=== PATIENT | female | born 1990 | race Caucasian/White ===

== ENCOUNTER 2018-02-12 09:55 | Inpatient (IN) ==
[2018-02-12] MEDS ORDERED: Metoclopramide 10 MG/2 ML VIAL IVP PRN (11:05)
[2018-02-12] MEDS ORDERED: Ondansetron 4 MG/2 ML VIAL IVP PRN (11:05)
[2018-02-12] MEDS ORDERED: *HR* Nalbuphine 10 MG/ML AMPUL IVP PRN (11:05)
[2018-02-12] MEDS ORDERED: Famotidine 20 MG/2 ML VIAL IVP PRN (11:05)
[2018-02-12] MEDS ORDERED: Naloxone 0.4 MG/ML INJ IVP PRN (11:05)
[2018-02-12] MEDS ORDERED: Ringers Solution, Lactated 1,000 ML IVC SCH (11:15)
[2018-02-12] MEDS ORDERED: miSOPROStol 25 MCG TABLET PO SCH (12:00)
[2018-02-12 12:10] LABS: Basophils % 0.2 %; Eosinophils # 0.1 K/mcL (0.0-0.6); Eosinophils % 0.9 %; Hematocrit 31.8 % (35.3-44.9); Hemoglobin 10.5 g/dL (11.5-15.4); Immature Granulocytes % 0.4 % (0-4); Lymphocytes # 1.5 K/mcL (0.6-4.6); Lymphocytes % 16.3 %; Mean Corpuscular Hemoglobin 27.8 pg (28.0-33.3); Mean Corpuscular Volume 84.1 fL (83.0-100.0); Mean Platelet Volume 11.5 fL (9.4-12.4); Monocytes # 0.6 K/mcL (0.0-1.3); Monocytes % 6.3 %; Neutrophils # 7.1 K/mcL (1.6-8.9); Platelet Count 270 K/mcL (140-400); Red Blood Count 3.78 M/mcL (3.82-4.97); Segmented Neutrophils % 75.9 %
[2018-02-12 15:30] LABS: Amphetamine Screen,Urine Negative ng/mL (Cutoff=1000); Barbiturate Screen,Urine Negative ng/mL (Cutoff=200); Benzodiazepines Screen,Urine Negative ng/mL (Cutoff=200); Cannabinoid Screen,Urine Negative ng/mL (Cutoff = 50); Cocaine Screen,Urine Negative ng/mL (Cutoff= 300); Opiate Screen,Urine Negative ng/mL (Cutoff=300); Phencyclidine Screen,Urine Negative ng/mL (Cutoff=25)
--- NOTE | 2018-02-12 16:43 | OB Labor Progress Note ---
Date of Encounter: 02/12/18 Time of Encounter: 16:42 Labor Progress Note - Subjective Subjective: Pt with mild uc's - Cervix Cervix: 3/80/-2 - Heart Tones Heart Tones: RNST - Interventions Interventions: AROM clear. - Plan Plan: Expect
[2018-02-12] MEDS ORDERED: Oxytocin 20 units/ LR 1000 mL 20 UNIT/1,000 ML BAG IVC SCH (21:00)
--- NOTE | 2018-02-12 21:20 | OB/GYN History & Physical ---
Date of Encounter: 02/12/18 Time of Encounter: 21:18 Assessment and Plan (1) 40 weeks gestation of Current visit: Yes Status: Acute Pt with h/o cervical incompetence and is s/p cerclage removal. She presents now for induction of labor. Plan Cytotec, expect . History of Present Illness Chief complaint: Here for induction of labor HPI: Ms. Pike is a 27 year old female female presents at 40w3d for induction of labor. Pt has h/o prior cervical incompetence with early loss and had cerclage during this removed at 36 weeks. On arrival pt report occ uc's, no vb or lof. Past Med Surg Social Fam HX - Past Medical History Source: patient, old records reviewed Medical history: no medical history Psychiatric history: no psych history - Social History Smoking Status: Never smoker Smokeless Tobacco Status: No Alcohol use: none Drug use: none - Family History Father Age: 50 Family Member Ethnicity: Non- Twin of Family Member: Yes, Identical Living Status: Still Living Hx Family Cardiac Disorders: Yes (HTN, high cholesterol) Hx Family Respiratory Disorders: No Hx Family Cancer: No Hx Family GI Disorders: No Hx Family Genitourinary Disorders: No Hx Family Endocrine Disorder: No Hx Family Musculoskeletal Disorders: No Hx Family Neuromuscular Disorders: No Hx Family Neurologic Disorders: No Hx Family HEENT Disorders: No Hx Family Autoimmune Disorders: No Hx Family Reproductive Disorders: No Hx Family Psychosocial Disorders: No Hx Family Medical Disorders: No Obstetrical History - Pregnancies : 2 : 1 Medications and Allergies Docusate [Colace] 100 mg PO DAILY 02/12/18 [History] Ferrous Sulfate 325 mg PO BIDWM 02/12/18 [History] Vit #108/Iron/FA [ One Tablet] 1 each PO DAILY 02/12/18 [ History] 3 Allergy/AdvReac Type Severity Reaction Status Date / Time No Known Allergies Allergy Verified 12/21/16 15:59 Exam - Constitutional Constitutional: well developed, well nourished - HEENT HEENT: EOMI, PERRL - Neck Neck exam: full ROM - Lungs Respiratory exam: CTAB - Cardiovascular Cardiovascular exam: RRR - Abdomen Abdomen: Present: gravid - Extremities Extremities exam: full ROM Deep Tendon Reflex Grade: 2+ Normal - Cervix Dilation: 3 Effacement: 70 Station: -2 Results Result Diagrams: 02/12/18 10:30 Abnormal lab results RBC 3.78 M/mcL (3.82-4.97) L 02/12/18 10:30 Hgb 10.5 g/dL (11.5-15.4) L 02/12/18 10:30 Hct 31.8 % (35.3-44.9) L 02/12/18 10:30 MCH 27.8 pg (28.0-33.3) L 02/12/18 10:30 All other labs normal. - VTE Reasons for not Prescribing Prophylaxis: Treatment not Indicated - Low risk for VTE
--- NOTE | 2018-02-12 21:26 | OB Labor Progress Note ---
Date of Encounter: 02/12/18 Time of Encounter: 21:24 Labor Progress Note - Subjective Subjective: Uc's getting stronger. - Cervix Cervix: 4/80/-2 - Heart Tones Heart Tones: RNST - Interventions Interventions: IUPC placed - Plan Plan: Expect . Pt is on pitocin will adjust as needed.
[2018-02-12] MEDS ORDERED: Epidural Premix (fent/bupiv) 110 ML EP ONE (22:11)
[2018-02-12] MEDS ORDERED: Epidural Premix (fent/bupiv) 110 ML EP SCH (23:45)
[2018-02-12] MEDS ORDERED: EPHEDrine 50 MG/ML VIAL ONE (23:59)
--- NOTE | 2018-02-13 | Anesthesia Evaluation PreOp ---
Date of Encounter: 02/12/18 Time of Encounter: 22:30 - Past History Planned Operation: oxana Cardiac History: Denies any Significant Hx Pulmonary History: Denies Any Significant HX MEAT CARRIER History: Denies Any Significant HX Other Medical History: Denies Any Significant HX Anesthesia History: No Prior Anesthetic Complications : Yes Test: Positive Alcohol Use: none Drug use: none Medications and Allergies Docusate [Colace] 100 mg PO DAILY 02/12/18 [History] Ferrous Sulfate 325 mg PO BIDWM 02/12/18 [History] Vit #108/Iron/FA [ One Tablet] 1 each PO DAILY 02/12/18 [ History] 3 Allergy/AdvReac Type Severity Reaction Status Date / Time No Known Allergies Allergy Verified 12/21/16 15:59 - Meds/Allergy Pre-op Review Medications Reviewed: Yes Allergies Reviewed: Yes Beta Blockers on Current Med List: No Anesthesia Results - Labs 02/12/18 10:30 Anesthesia Exam - HEENT Pupil (Motor): Pupils equal Mallampati: II Teeth: Normal Oral Opening: Greater than 3 - MEAT CARRIER LOC: Oriented MEAT CARRIER Motor: Normal RUE, Normal LUE, Normal RLE, Normal LLE, Normal Face MEAT CARRIER Sensory: Normal: RUE, LUE, RLE, LLE, Face - Cardiac Rhythm: Regular Murmur: None JVD: No Carotid Bruit: No - Pulmonary Breath Sounds: bilateral Clear Respiratory Effort: Symmetrical
--- NOTE | 2018-02-13 00:02 | Anesthesia Procedures ---
Date of Encounter: 02/13/18 Time of Encounter: 22:30 Procedures: Anesthesia - Epidural/Spinal Patient ID/Chart reviewed: Yes Patient examined: Yes OB Eval: Gestational age: 40.3 OB Eval: : 2 OB Eval: Hx Para: 0 OB Eval: Dilated at (cm): 4 OB Eval: Contractions: Non-stressed pattern Consent Obtained: Yes Supplemental Oxygen: None/Room Air Site Prep: Aseptic Technique Patient position: upright Amount of Local Anesthetic used: 3 Touhy Needle Gauge: 18 Touhy Needle Depth (cm): 8 Catheter Depth at Skin (cm): 9 Test Dose (1.5% Lido + Epi): Volume given (mls): 3 Test Dose Result: Negative Infusion Rate (mls/hr): [address]: Tegaderm, Tape Interspace Used: L4-L5 Loss of Resistance (LYRIC): Yes Blood: No CSF: No Paresthesia: No Vitals + FHT's: stable throughout see nursing notes
[2018-02-13] MEDS ORDERED: Epidural Premix (fent/bupiv) 110 ML EP ONE (03:53)
--- NOTE | 2018-02-13 05:57 | OB Labor Progress Note ---
Date of Encounter: 02/13/18 Time of Encounter: 05:54 Labor Progress Note - Subjective Subjective: Pt comfortable with epidural - Vital Signs Vital Signs: BP 107/57 - Cervix Cervix: 7-8/90/-1 - Heart Tones Heart Tones: 130's with excellent BTBV, late decels noted. - [place]: UC's q 3-4 min 70 mmhg - Interventions Interventions: Pitocin cut back then turned off, bolus given and pt repositioned. - Plan Plan: Pt now with recurrent late decels. Still great BTBV noted. Agressive efforts underway to improve heart rate tracing. If late decels persist will need to proceed with .
--- NOTE | 2018-02-13 06:40 | OB Labor Progress Note ---
Date of Encounter: 02/13/18 Time of Encounter: 06:37 Labor Progress Note - Subjective Subjective: Pt comfortable with uc's, tearful worried about prospect of . She very much wants chance at attempted vaginal delivery. - Heart Tones Heart Tones: Excellent BTBV, no decels with last 3 uc's. - Interventions Interventions: PIt off, oxygen on, iv bolus complete, pt on left side - Plan Plan: Aggressive inutero recusitative efforts appear to be working and no longer with late decels, however uc's now very spaced out. Pt very much wants attempt at vaginal delivery and does not want at this time. Will cont. observation, may be able to increase pitocin again in a alittle bit.
[2018-02-13] MEDS ORDERED: CeFAZolin Syringe 2,000MG/20 ML SYR IVPB ONE (07:20)
--- NOTE | 2018-02-13 07:28 | OB Labor Progress Note ---
Date of Encounter: 02/13/18 Time of Encounter: 07:26 Labor Progress Note - Plan Plan: heart tracing now with marked variability and wandering baseline from 90 to 180. Cvx not changed. D/w pt options and my concern over potential for compromise. Will proceed with primary LTCS.
[2018-02-13] MEDS ORDERED: Lidocaine -MPF 2% 5 ML VIAL ONE (07:29)
[2018-02-13] MEDS ORDERED: *HR* Phenylephrine 10 MG/ML VIAL ONE (07:30)
[2018-02-13] MEDS ORDERED: CeFAZolin Syr 2,000MG/20 ML 2,000 MG/20 ML SYRINGE IVPB ONE (07:30)
[2018-02-13] MEDS ORDERED: CeFAZolin Premix DUPLEX 2,000 MG/50 ML BAG IVPB ONE ×2 (07:45)
[2018-02-13] MEDS ORDERED: Ondansetron 4 MG/2 ML VIAL ONE (07:55)
[2018-02-13] MEDS ORDERED: Ringers Solution, Lactated 1,000 ML ONE (07:55)
[2018-02-13] MEDS ORDERED: Morphine Sulfate/PF 5mg/10mL Vial ONE (07:59)
[2018-02-13] MEDS ORDERED: *HR* Promethazine 25 MG/ML VIAL IVP PRN (08:23)
[2018-02-13] MEDS ORDERED: *HR* OxyCODONE Immed Rel 5 MG TABLET PO PRN (08:23)
--- NOTE | 2018-02-13 08:43 | OB/GYN Procedure Note ---
Section - Date of procedure: 02/13/18 Preop diagnosis: other (History of incompetent cervix, nonreassuring well- being) Procedure: section, primary low transverse Surgeon: Ayden Truong Estimated blood loss (cc): 700 Was there an dietary assistant present: No Anesthesia Type: Epidural section complications: none Disposition: PACU Specimens: Placenta - (s) Infant A Infant Delivery Date: 02/13/18 Delivery Time: 08:03 Presentation: vertex Position: LOVE Route of delivery: forceps ( section) Viability: Viable Pounds: 9 Ounces: 0 at 1 minute: 9 at 5 minutes: 9 Shoulder Dystocia: not encountered Specimens collected: cord blood Placenta: spontaneous Cord: 3 umbilical vessels - Narrative Narrative: Patient's 19-year-old female history of present, cervix status post cerclage removal at 36 weeks no presented at 40 weeks and 3 days for induction of labor she initially reached 8 cm dilation however begin having recurrent late decelerations. Resuscitative measures were taken using repositioning IV fluid bolus turned off Pitocin and giving oxygen initially responded with resolution of the late decelerations however then begin having very marked variability and again late decelerations therefore decision was made to proceed with primary section for nonreassuring well-being. She was informed of operative risks and signed appropriate consent. Description of procedure: Patient was taken operating room where epidural was dosed. Was prepped and draped in usual sterile fashion and Wood catheter was left in continuing to drain clear fluid. Once adequate anesthesia was ensured scalpel was used to make a Pfannenstiel skin incision which sharp taken down the rectus muscle fascia was incised midline fascial incision was extended bilaterally. Peritoneum was entered bluntly bladder blade was placed and bladder flap was developed and lower uterine segment infant was delivered vertex presentation significant With molding was noted. There was a nuchal cord 1 that was easily reduced. Cord was clamped and cut and infant was taken nurse personnel were weight is 79 pounds Apgars of 9 at 1 minute and 9 at 5 minutes. The delivered manually without difficulty uterine cavity was massaged free of all residual tissue. Uterus closed the Vicryl running lock stitch second imbricating layer was placed with the first obtain hemostasis. Again irrigation was performed hemostasis was ensured fascia was closed 0 Vicryl in a running manner. Once the fascia was closed again irrigation was performed hemostasis was ensured and. Skin edges reapproximated with 4-0 Vicryl. All sponge counts counts are correct patient was taken recovery in good condition.
[2018-02-13] MEDS ORDERED: Naloxone 0.4 MG/ML INJ IVP PRN (11:15)
[2018-02-13] MEDS ORDERED: Metoclopramide 10 MG/2 ML VIAL IVP PRN (11:15)
[2018-02-13] MEDS ORDERED: Ondansetron 4 MG/2 ML VIAL IVP PRN (11:15)
[2018-02-13] MEDS ORDERED: Oxytocin 20 units/ LR 1000 mL 20 UNIT/1,000 ML BAG IVC SCH (11:15)
[2018-02-13] MEDS ORDERED: Sennosides 8.6 MG TABLET PO PRN (11:15)
[2018-02-13] MEDS ORDERED: Rho Immune Globulin 1,500 UNIT SYRINGE IM ONE (11:15)
[2018-02-13] MEDS: *HR* OxyCODONE/APAP 5/325 TABLET PO PRN (20:21)
[2018-02-13] MEDS: Ibuprofen 600 MG TABLET PO PRN (20:21)
[2018-02-14] MEDS: Ibuprofen 600 MG TABLET PO PRN ×3 (03:34→18:10)
[2018-02-14] MEDS: *HR* OxyCODONE/APAP 5/325 TABLET PO PRN ×3 (03:34→18:10)
[2018-02-14 06:04] LABS: Basophils % 0.1 %; Eosinophils # 0.1 K/mcL (0.0-0.6); Eosinophils % 0.7 %; Hematocrit 27.3 % (35.3-44.9); Immature Granulocytes % 0.4 % (0-4); Lymphocytes # 1.3 K/mcL (0.6-4.6); Lymphocytes % 8.6 %; Mean Corpuscular HGB Conc 32.6 g/dL (31.6-35.5); Mean Corpuscular Hemoglobin 27.2 pg (28.0-33.3); Mean Corpuscular Volume 83.5 fL (83.0-100.0); Mean Platelet Volume 10.7 fL (9.4-12.4); Monocytes # 0.8 K/mcL (0.0-1.3); Monocytes % 5.5 %; Neutrophils # 12.8 K/mcL (1.6-8.9); Platelet Count 254 K/mcL (140-400); Red Blood Count 3.27 M/mcL (3.82-4.97); Red Cell Distribution Width 14.3 % (11.5-14.5); Segmented Neutrophils % 84.7 %
[2018-02-14 06:06] LABS: Hemoglobin 8.9 g/dL (11.5-15.4)
[2018-02-14] MEDS: Prenatal Vit/FA 1 EACH TABLET PO SCH (08:16)
--- NOTE | 2018-02-14 09:20 | OB/GYN Progress Note ---
Date of Encounter: 02/14/18 Time of Encounter: 09:18 - Assessment and Plan (1) S/P section Current Visit: Yes Status: Acute Stable POD #1 Continue current management Anticipate DC tomorrow. (2) anemia Current Visit: Yes Status: Acute will increase iron to BID Subjective - Subjective Interval history: Pt states feels well. Pain well managed on po pain medication. Patient reports: appetite normal, voiding normally, pain well controlled, ambulating normally [place]: doing well Objective - Vital Signs Latest vital signs: Vital Signs Temp Pulse Pulse Resp BP Pulse Ox 02/14/18 07:58 97.9 F 98 16 106/70 97 02/14/18 03:51 97.8 F 105 18 107/56 98 02/13/18 23:59 97.7 F 102 20 109/70 100 02/13/18 20:00 98.7 F 126 16 109/59 98 02/13/18 17:00 106 16 106/64 98 02/13/18 14:32 98.2 F 118 16 112/62 02/13/18 13:10 16 02/13/18 13:04 98.8 F 137 12 118/67 96 02/13/18 12:00 98.1 F 115 16 110/61 02/13/18 11:35 98.4 F 120 12 112/61 98 02/13/18 11:27 110 16 02/13/18 11:00 98.8 F 121 16 116/65 96 Intake and Output 02/13/18 02/14/18 02/14/18 23:59 07:59 15:59 Intake Total 600 / 600 Output Total 1800 / 1800 1100 / 1100 Balance -1200 / -1200 -1100 / -1100 Intake: Oral 600 / 600 Output: Urine 300 / 300 Catheter 1500 / 1500 1100 / 1100 2-way Urethral 1100 / 1100 Other: Weight 123.967 kg Patient Weight 02/14/18 23:59 Weight 123.967 kg - Exam Lungs: bilateral: normal Chest: Normal S1, Normal S2 Extremities: Present: normal Abdomen: Present: normal appearance, soft Uterus: Present: normal (at u) - Labs Labs: Laboratory Results - last 24 hr 02/14/18 05:51 WBC 15.1 H D RBC 3.27 L Hgb 8.9 L D Hct 27.3 L MCV 83.5 MCH 27.2 L MCHC 32.6 RDW 14.3 Plt Count 254 MPV 10.7 Immature Gran % 0.4 Seg Neutrophils % 84.7 Lymphocytes % 8.6 Monocytes % 5.5 Eosinophils % 0.7 Basophils % 0.1 Neutrophils # 12.8 H Lymphocytes # 1.3 Monocytes # 0.8 Eosinophils # 0.1 Basophils # 0.0
[2018-02-14] MEDS: Simethicone 80 MG TAB.CHEW PO PRN (19:50)
[2018-02-15] MEDS: *HR* OxyCODONE/APAP 5/325 TABLET PO PRN (04:21)
[2018-02-15] MEDS: Simethicone 80 MG TAB.CHEW PO PRN (04:21)
[2018-02-15 08:23] VITALS: BP 118/79
[2018-02-15] MEDS: Prenatal Vit/FA 1 EACH TABLET PO SCH (08:38)
--- NOTE | 2018-02-15 09:11 | Discharge Summary ---
Date of Encounter: 02/15/18 Time of Encounter: 09:34 - Discharge Diagnosis (1) S/P section Priority: Primary Status: Acute Comments: Doing well S/P Day 2. Pain well controlled with po meds. Ambulating and voiding well without difficulty. Passing gas, no BM since delivery. Tolerating regular diet. Lochia light and without clots. Infant in crib in room , states baby bottlefeeding well. Desires to go home today. - Discharge Medications Prescriptions: Ibuprofen [Motrin] 600 mg PO Q6HR PRN #30 tablet PRN Reason: Cramping OxyCODONE/APAP 5/325 [Percocet 5/325 MG] 1 each PO Q6HR PRN 7 Days #28 tablet PRN Reason: Moderate pain 4-6 Docusate [Colace] 100 mg PO BID #20 capsule Ferrous Sulfate 325 mg PO BIDWM #120 tablet Home Medications: Vit #108/Iron/FA [ One Tablet] 1 each PO DAILY 02/12/18 [ History] Docusate [Colace] 100 mg PO BID #20 capsule 02/15/18 [Rx] Ferrous Sulfate 325 mg PO BIDWM #120 tablet 02/15/18 [Rx] Ibuprofen [Motrin] 600 mg PO Q6HR PRN #30 tablet 02/15/18 [Rx] OxyCODONE/APAP 5/325 [Percocet 5/325 MG] 1 each PO Q6HR PRN 7 Days #28 tablet [Rx] Simethicone [Gas-X] 80 mg PO TID PRN tab.chew 02/15/18 [Rx] Allergies/Adverse Reactions: 3 Allergy/AdvReac Type Severity Reaction Status Date / Time No Known Allergies Allergy Verified 12/21/16 15:59 Data Procedures and tests throughout hospitalization: Laboratory Tests 02/12/18 02/12/18 02/14/18 10:30 10:30 05:51 WBC 9.3 15.1 H D RBC 3.78 L 3.27 L Hgb 10.5 L 8.9 L D Hct 31.8 L 27.3 L MCV 84.1 83.5 MCH 27.8 L 27.2 L MCHC 33.0 32.6 RDW 14.0 14.3 Plt Count 270 254 MPV 11.5 10.7 Immature Gran % 0.4 0.4 Seg Neutrophils % 75.9 84.7 Lymphocytes % 16.3 8.6 Monocytes % 6.3 5.5 Eosinophils % 0.9 0.7 Basophils % 0.2 0.1 Neutrophils # 7.1 12.8 H Lymphocytes # 1.5 1.3 Monocytes # 0.6 0.8 Eosinophils # 0.1 0.1 Basophils # 0.0 0.0 Urine Opiates Screen Negative Ur Barbiturates Screen Negative Ur Phencyclidine Scrn Negative Ur Amphetamines Screen Negative U Benzodiazepines Scrn Negative Urine Cocaine Screen Negative U Marijuana (THC) Screen Negative Date of admission: 02/12/18 09:55 Primary care physician: PCP NONE Discharging clinician: Deyanira Sanchez Anticipated date of discharge: 02/15/18 - Patient Status Disposition: Home, Self-Care Condition: Good Functional capacity at discharge: independent ambulation Overall status at discharge: patient is progressing back to baseline - Discharge Instructions Follow Up With: NONE,PCP [Primary Care Provider] - Ayden Truong MD [Partnered Physician] - - Diet and Activity Activity: resume usual activities as tolerated Diet: advance to your usual diet Hospital Course Reason for admission: section Delivery: section Other procedures: none complications: none Discharge diagnosis: IUP at term delivered [place] baby: male Hospital course: Uncomplicated Time spent discussing smoking cessation with patient: 3 to 10 minutes Time Attestation: Total time spent providing and/or coordinating discharge services: Time Spent: Less than 30 minutes - VTE Reasons for not Prescribing Prophylaxis: Treatment not Indicated - Low risk for VTE Documentation of Mechanical Device: Intermittent pneumatic compression device Exam - Constitutional Vitals: Temp Pulse Resp BP Pulse Ox 98.1 F 109 20 118/79 98 02/15/18 08:22 02/15/18 08:22 02/15/18 08:22 02/15/18 08:22 02/15/18 08:22 General appearance IM: cooperative, A&O X 3, pleasant, no acute distress, answers questions appropriately - Respiratory Respiratory exam: Present: CTAB - Cardiovascular Cardiovascular exam IM: Present: RRR - GI/Abdominal GI/Abdominal exam IM: normal bowel sounds Incision: normal, intact - Rectal Rectal exam: deferred - Uterine Tone: Firm Uterus Position: At Umbilicus, Midline - Extremities Exam Extremities exam IM: Present: full ROM, normal inspection, radial pulses palpable and symmetrical - Neurological Exam Neurological exam: alert, normal gait, oriented X3
== END 2018-02-15 13:46 | disposition home or self-care (01) | DRG 766 ==
LOC: 1NENULAB 09:55 → 1NENUOBS 02-13 10:56
PROVIDERS: ADMIT Obstetrics & Gynecology; ATTEND Obstetrics & Gynecology

== ENCOUNTER 2019-05-20 10:21 | Observation (INO) ==
[2019-05-20] MEDS ORDERED: CeFAZolin Syr 2,000MG/20 ML 2,000 MG/20 ML SYRINGE IVPB ONE (10:40)
[2019-05-20] MEDS ORDERED: Ringers Solution, Lactated 1,000 ML IVC SCH (10:45)
[2019-05-20] MEDS ORDERED: *HR* Promethazine 25 MG/ML VIAL IVP PRN (11:00)
[2019-05-20] MEDS ORDERED: Acetaminophen IV 1,000 MG/100 ML INFUS..BTL IVPB ONE (11:00)
[2019-05-20] MEDS ORDERED: *HR* OxyCODONE Immed Rel 5 MG TABLET PO PRN ×2 (11:00→18:28)
[2019-05-20] MEDS ORDERED: *HR* FentaNYL (PF) 100 MCG/2 ML VIAL ONE (11:02)
[2019-05-20] MEDS ORDERED: *HR* Propofol 200 MG/20 ML VIAL IVP ONE (11:02)
[2019-05-20] MEDS ORDERED: Ondansetron 4 MG/2 ML VIAL ONE (11:03)
[2019-05-20] MEDS ORDERED: *HR* Rocuronium Bromide 50 MG/5 ML VIAL ONE (11:03)
[2019-05-20] MEDS ORDERED: Dexamethasone 4 MG/ML VIAL ONE (11:03)
[2019-05-20] MEDS ORDERED: Lidocaine -MPF 2% 2 ML VIAL ONE (11:03)
[2019-05-20] MEDS ORDERED: *HR* Succinylcholine 200 MG/10 ML VIAL IVP ONE (11:03)
[2019-05-20] MEDS ORDERED: *HR* Midazolam HCl 2 MG/2 ML VIAL ONE (11:06)
[2019-05-20] MEDS ORDERED: *HR* Remifentanil 2 MG VIAL IVP ONE (11:12)
[2019-05-20] MEDS ORDERED: Lidocaine/EPI 1:100k 1% 20 ML VIAL ONE (12:31)
[2019-05-20] MEDS ORDERED: Hydrocortisone Sodium Succ 100 MG/2 ML VIAL ONE (12:53)
[2019-05-20] MEDS ORDERED: *HR* Metoprolol 5 MG/5 ML VIAL IVP ONE (12:54)
[2019-05-20] MEDS ORDERED: *HR* PHENYLEPHRINE 1,000 MCG/10 ML SYRINGE IVP ONE (13:15)
[2019-05-20] MEDS ORDERED: *HR* Remifentanil 1 MG VIAL IVP ONE ×2 (15:03→16:34)
[2019-05-20] MEDS ORDERED: Esmolol 100 MG/10 ML VIAL IVP ONE (17:05)
[2019-05-20] MEDS ORDERED: *HR* HYDROmorphone (PF) 1 MG/ML SYRINGE ONE (17:15)
[2019-05-20] MEDS ORDERED: Ondansetron 4 MG/2 ML VIAL IVP PRN (18:28)
[2019-05-20] MEDS ORDERED: Acetaminophen 325 MG TABLET PO PRN (18:28)
[2019-05-20] MEDS ORDERED: LEVONORGESTREL IY SCH (18:28)
[2019-05-20] MEDS ORDERED: *HR* HYDROcodone/Acet 5/325 mg TABLET PO PRN (18:28)
[2019-05-20] MEDS ORDERED: Naloxone 0.4 MG/ML INJ IVP PRN (18:28)
[2019-05-21] MEDS ORDERED: Calcium Gluconate 1gm/50mL 1 GM/50 ML BAG IVPB ONE (04:24)
[2019-05-21] MEDS: Cholecalciferol (D-3) 1,000 UNIT (25MCG) TABLET PO SCH (08:08)
[2019-05-22 07:22] VITALS: BP 141/82
[2019-05-22] MEDS: Cholecalciferol (D-3) 1,000 UNIT (25MCG) TABLET PO SCH (08:08)
== END 2019-05-22 11:11 | disposition home or self-care (01) ==
LOC: 3BNU 10:21 → SAMDAY 10:21 → 3BNU 17:12
PROVIDERS: ADMIT Otolaryngology Facial Plastic Surgery; ATTEND Otolaryngology Facial Plastic Surgery
PROC: [UNRECOGNIZED PROCEDURE] (2019-05-20 12:25)

== ENCOUNTER 2019-05-23 21:00 | Observation (INO) ==
[2019-05-23 22:35] LABS: Basophils % 0.4 %; Eosinophils # 0.2 K/mcL (0.0-0.6); Eosinophils % 2.1 %; Hematocrit 32.1 % (35.3-44.9); Hemoglobin 10.5 g/dL (11.5-15.4); Immature Granulocytes % 0.2 % (0-4); Lymphocytes # 3.4 K/mcL (0.6-4.6); Mean Corpuscular HGB Conc 32.7 g/dL (31.6-35.5); Mean Corpuscular Hemoglobin 26.6 pg (28.0-33.3); Mean Corpuscular Volume 81.5 fL (83.0-100.0); Mean Platelet Volume 10.1 fL (9.4-12.4); Monocytes # 0.6 K/mcL (0.0-1.3); Monocytes % 6.5 %; Neutrophils # 4.7 K/mcL (1.6-8.9); Platelet Count 271 K/mcL (140-400); Red Blood Count 3.94 M/mcL (3.82-4.97); Red Cell Distribution Width 12.3 % (11.5-14.5); Segmented Neutrophils % 52.8 %
[2019-05-23 22:40] LABS: VBG Ionized Calcium 0.87 mmol/L (1.15-1.35)
[2019-05-23 22:54] LABS: BUN/Creatinine Ratio 28 (6-26); Blood Urea Nitrogen 15 mg/dL (6-20); Calcium 7.2 mg/dL (8.6-10.3); Carbon Dioxide 26 mEq/L (23-29); Chloride 104 mEq/L (98-107); Glucose 90 mg/dL (70-105); Osmolality,Calculated 286 (280-300); Potassium 3.8 mEq/L (3.5-5.1); Sodium 138 mEq/L (136-145); eGFR For African Americans > 60 (> 60); eGFR For Non-African Americans > 60 (> 60)
[2019-05-23 23:29] LABS: Albumin 3.8 g/dL (3.5-5.7)
[2019-05-23] MEDS ORDERED: Calcium Gluconate 1gm/50mL 1 GM/50 ML BAG IVPB ONE (23:30)
[2019-05-24] MEDS ORDERED: Naloxone 0.4 MG/ML INJ IVP PRN (06:27)
[2019-05-24 07:08] LABS: VBG Ionized Calcium 0.76 mmol/L (1.15-1.35)
[2019-05-24 07:15] LABS: Basophils % 0.4 %; Eosinophils # 0.2 K/mcL (0.0-0.6); Eosinophils % 2.8 %; Hematocrit 30.4 % (35.3-44.9); Immature Granulocytes % 0.3 % (0-4); Lymphocytes # 2.7 K/mcL (0.6-4.6); Lymphocytes % 36.4 %; Mean Corpuscular HGB Conc 32.9 g/dL (31.6-35.5); Mean Corpuscular Hemoglobin 26.5 pg (28.0-33.3); Mean Corpuscular Volume 80.4 fL (83.0-100.0); Mean Platelet Volume 10.8 fL (9.4-12.4); Monocytes # 0.5 K/mcL (0.0-1.3); Monocytes % 6.2 %; Platelet Count 260 K/mcL (140-400); Red Blood Count 3.78 M/mcL (3.82-4.97); Red Cell Distribution Width 12.3 % (11.5-14.5); Segmented Neutrophils % 53.9 %; White Blood Count 7.4 K/mcL (4.3-11.1)
[2019-05-24 07:24] LABS: BUN/Creatinine Ratio 24 (6-26); Blood Urea Nitrogen 12 mg/dL (6-20); Calcium 6.4 mg/dL (8.6-10.3); Carbon Dioxide 27 mEq/L (23-29); Chloride 102 mEq/L (98-107); Glucose 92 mg/dL (70-105); Osmolality,Calculated 283 (280-300); Potassium 3.7 mEq/L (3.5-5.1); Sodium 137 mEq/L (136-145); eGFR For African Americans > 60 (> 60); eGFR For Non-African Americans > 60 (> 60)
[2019-05-24 07:30] LABS: Albumin 3.6 g/dL (3.5-5.7); Phosphorous 5.9 mg/dL (2.7-4.5)
[2019-05-24] MEDS ORDERED: Calcium Gluconate 2,000 MG in 0.9 % Sodium Chloride 100 ML IVPB ONE ×2 (07:47→18:30)
[2019-05-24] MEDS ORDERED: Acetaminophen 325 MG TABLET PO PRN (08:16)
[2019-05-24] MEDS: cephALEXin 500 MG CAPSULE PO SCH ×2 (10:29→20:10)
[2019-05-24 12:49] LABS: Calcium 7.2 mg/dL (8.6-10.3); Magnesium 1.9 mg/dL (1.6-2.6)
[2019-05-24] MEDS ORDERED: Calcium Gluconate 1gm/50mL 1 GM/50 ML BAG IVPB SCH (17:47)
[2019-05-25] MEDS ORDERED: Fluconazole 100 MG TABLET PO ONE
[2019-05-25 03:16] LABS: Basophils % 0.2 %; Eosinophils # 0.3 K/mcL (0.0-0.6); Eosinophils % 3.9 %; Hematocrit 31.1 % (35.3-44.9); Hemoglobin 10.2 g/dL (11.5-15.4); Immature Granulocytes % 0.1 % (0-4); Mean Corpuscular HGB Conc 32.8 g/dL (31.6-35.5); Mean Corpuscular Hemoglobin 27.1 pg (28.0-33.3); Mean Corpuscular Volume 82.5 fL (83.0-100.0); Mean Platelet Volume 10.8 fL (9.4-12.4); Monocytes # 0.5 K/mcL (0.0-1.3); Neutrophils # 4.3 K/mcL (1.6-8.9); Platelet Count 277 K/mcL (140-400); Red Blood Count 3.77 M/mcL (3.82-4.97); Red Cell Distribution Width 12.2 % (11.5-14.5); Segmented Neutrophils % 52.8 %; White Blood Count 8.2 K/mcL (4.3-11.1)
[2019-05-25 03:32] LABS: Albumin 3.6 g/dL (3.5-5.7); BUN/Creatinine Ratio 21 (6-26); Blood Urea Nitrogen 10 mg/dL (6-20); Calcium 7.3 mg/dL (8.6-10.3); Carbon Dioxide 24 mEq/L (23-29); Chloride 103 mEq/L (98-107); Glucose 88 mg/dL (70-105); Magnesium 1.5 mg/dL (1.6-2.6); Osmolality,Calculated 282 (280-300); Potassium 3.9 mEq/L (3.5-5.1); Sodium 137 mEq/L (136-145); eGFR For African Americans > 60 (> 60); eGFR For Non-African Americans > 60 (> 60)
[2019-05-25] MEDS ORDERED: Calcium Gluconate 1gm/50mL 1 GM/50 ML BAG IVPB ONE (07:35)
[2019-05-25] MEDS: cephALEXin 500 MG CAPSULE PO SCH (08:51)
[2019-05-25] MEDS ORDERED: Magnesium Oxide 400 MG TABLET PO SCH (09:00)
[2019-05-25] MEDS ORDERED: Calcium Gluconate 2,000 MG in 0.9 % Sodium Chloride 100 ML IVPB ONE ×3 (09:00→15:10)
[2019-05-25 15:32] VITALS: BP 132/79
[2019-05-25] MEDS ORDERED: Magnesium Oxide 400 MG TABLET PO STA (18:27)
== END 2019-05-25 18:00 | disposition home or self-care (01) ==
LOC: EMEROOARM 21:00 → 3ANU 21:00 → SUATTDRO 05-24 00:18 → 3ANU 05-24 00:54
PROVIDERS: ADMIT Family Medicine; ATTEND Internal Medicine

== ENCOUNTER 2019-06-12 15:29 | Observation (INO) ==
--- NOTE | 2019-06-12 16:04 | Emergency Department Note ---
Disposition Clinical Impression: Hypocalcemia Disposition: Admitted As Inpatient Condition: Good Time of Disposition: 18:01 Recheck wound or abnormal lab - General Chief Complaint: ED Recheck/Abnormal Lab/Rx Stated Complaint: abnormal labs, low calcium Time Seen by Provider: 06/12/19 15:40 Source: patient Limitations: no limitations Nursing Notes Reviewed: Yes Vital Signs Reviewed: Yes - History of Present Illness HPI Narrative: Patient is a 28 yo woman who had her thyroid removed 2/2 enlargement 3 weeks ag o. Her labs today had calcium 6, per patient, and she was told to come to the ED. She is having facial spasms, numbness and tingling with cramping in her hands and legs. Symptoms have been present since surgery, however, they have gotten worse the past 2 days. She said she has been hospitalized once 2 days post-op for hypocalcemia. She has 3 remaining parathyroid glands. Next followup appointments are at the end of June. Patient denies fever, AMS, CP, palpitations/irregular heartbeat, dizziness, SOB, N/V/D, abdominal pain or any other symptoms. PMH significant for hyperthyroidism s/p thyroidectomy, surgical removal of ovary 2/2 dermoid cyst. Medications include calcitriol 0.5mg bid, calcium carbonate 1g 4 times daily, Mg 400 mg BID, levothyroxine 125 mg daily. - Related Data Home Medications Medication Instructions Recorded Confirmed Buspirone HCl [Buspar] 7.5 mg PO BID PRN 05/20/19 06/12/19 Levonorgestrel [Mirena] 1 each IY AD 05/20/19 06/12/19 Calcitriol [Rocaltrol] 0.5 mcg PO BID 05/24/19 06/12/19 Calcium Carbonate [Calcium] 1,000 mg PO QID 05/24/19 06/12/19 Levothyroxine [Synthroid] 125 mcg PO QAM 05/24/19 06/12/19 Previous Rx's Medication Instructions Recorded Magnesium Oxide [Mag-Ox] 400 mg PO BID #60 tablet 05/25/19 Allergies Allergy/AdvReac Type Severity Reaction Status Date / Time No Known Allergies Allergy Verified 05/24/19 14:01 All systems ED: reviewed and negative except as stated. Neurological: Reports: paresthesias Endocrine: Reports: as per HPI Past Medical History - Past Medical History Attestation: Yes The following information was validated with the patient. Source: patient, old records reviewed, obtained from family Medical history: Reports: thyroid disease, other Surgical history: Reports: thyroidectomy, other Psychiatric history: Reports: anxiety [employer] history: Reports: other - Social History Smoking Status: Never smoker Smokeless Tobacco Status: No Alcohol use: Reports: none Drug use: Reports: none Physical Exam PE Gen: NAD, AOx3 HEENT: No lymphadenopathy, no signs of surgical site infection. Pupils equal and reactive. Cardio: Regular rate and rhythm, no murmur, no peripheral edema, no cyanosis, good perfusion to all extremities. Resp: Breath sounds equal bilaterally, no wheeze or cough GI: Abdomen soft, nontender, nondistended on palpation in all quadrants : No suprapubic distention or tenderness MSK: No lesions, normal ROM, no joint erythema or edema Neuro: +Chvostek's sign, CNI-XII intact, sensation and strength intact Psych: appropriate affect - General Limitations: no limitations General appearance: alert, in no apparent distress Course Course Narrative: Given thyroidectomy and Ca 6 drawn at noon today, will start IV calcium gluconate. Ordered CBC, BMP, Mg, PO4, TSH, T3/T4, PTH and EKG. Ca 6.5, PTH low at 8.8 w/ accompanying hyperphosphatemia. Mg WNL. TSH 0.033, free T3 2.28, both low. EKG significant for prolonged Qtc 514. Plan to admit patient given symptomatic hypocalcemia probable 2/2 hypoparathyroidism with prolonged Qtc. Hospitalist and patient agreed with plan. Vital Signs Temperature 97.9 F 06/12/19 15:35 Pulse Rate 80 06/12/19 15:35 Respiratory Rate 06/12/19 15:35 Blood Pressure 137/83 06/12/19 15:35 O2 Sat by Pulse Oximetry 99 06/12/19 15:35 Temperature 97.9 F 06/12/19 15:35 Pulse Rate 74 06/12/19 16:52 Respiratory Rate 06/12/19 15:35 Blood Pressure 135/93 06/12/19 16:52 O2 Sat by Pulse Oximetry 100 06/12/19 16:52 Oxygen Delivery Oxygen Delivery Room Air Recheck wound or abnormal lab - MDM Narrative Medical decision making narrative: See course. - Medical Records Medical records reviewed: Yes I reviewed the patient's medical records. - Lab Data Lab results reviewed: Yes I reviewed the patient's lab results. Result diagrams: 06/12/19 16:04 06/12/19 16:04 Lab Results 06/12/19 06/12/19 06/12/19 Range/Units 16:04 16:04 16:04 WBC 7.9 (4.3-11.1) K/mcL RBC 4.15 (3.82-4.97) M/mcL Hgb 11.2 L (11.5-15.4) g/dL Hct 34.7 L (35.3-44.9) % MCV 83.6 (83.0-100.0) fL MCH 27.0 L (28.0-33.3) pg MCHC 32.3 (31.6-35.5) g/dL RDW 13.2 (11.5-14.5) % Plt Count 328 (140-400) K/mcL MPV 10.6 (9.4-12.4) fL Immature Gran % 0.3 (0-4) % Seg Neutrophils % 54.7 % Lymphocytes % 36.5 % Monocytes % 4.7 % Eosinophils % 2.9 % Basophils % 0.9 % Neutrophils # 4.3 (1.6-8.9) K/mcL Lymphocytes # 2.9 (0.6-4.6) K/mcL Monocytes # 0.4 (0.0-1.3) K/mcL Eosinophils # 0.2 (0.0-0.6) K/mcL Basophils # 0.1 (0.0-0.2) K/mcL Sodium 137 (136-145) mEq/L Potassium 3.9 (3.5-5.1) mEq/L Chloride 104 (98-107) mEq/L Carbon Dioxide 25 (23-29) mEq/L BUN 10 (6-20) mg/dL Creatinine 0.78 (0.60-1.20) mg/dL Est GFR ( Amer) > 60 (> 60) Est GFR (Non-Af Amer) > 60 (> 60) BUN/Creatinine Ratio 13 (6-26) Glucose 90 (70-105) mg/dL Calculated Osmolality 283 (280-300) Calcium 6.5 L (8.6-10.3) mg/dL Venous Ioniz Calcium (1.15-1.35) mmol/L Phosphorus 5.6 H (2.7-4.5) mg/dL Magnesium 1.7 (1.6-2.6) mg/dL Albumin 4.2 (3.5-5.7) g/dL TSH 0.033 L (0.340-5.600) mcIU/mL Free T4 0.73 (0.70-2.00) ng/dl Free T3 2.28 L (2.50-3.90) pg/mL Total T3 0.88 (0.87-1.78) ng/mL PTH Intact 8.8 L (10.0-65.0) pg/ml 06/12/19 Range/Units 16:31 WBC (4.3-11.1) K/mcL RBC (3.82-4.97) M/mcL Hgb (11.5-15.4) g/dL Hct (35.3-44.9) % MCV (83.0-100.0) fL MCH (28.0-33.3) pg MCHC (31.6-35.5) g/dL RDW (11.5-14.5) % Plt Count (140-400) K/mcL MPV (9.4-12.4) fL Immature Gran % (0-4) % Seg Neutrophils % % Lymphocytes % % Monocytes % % Eosinophils % % Basophils % % Neutrophils # (1.6-8.9) K/mcL Lymphocytes # (0.6-4.6) K/mcL Monocytes # (0.0-1.3) K/mcL Eosinophils # (0.0-0.6) K/mcL Basophils # (0.0-0.2) K/mcL Sodium (136-145) mEq/L Potassium (3.5-5.1) mEq/L Chloride (98-107) mEq/L Carbon Dioxide (23-29) mEq/L BUN (6-20) mg/dL Creatinine (0.60-1.20) mg/dL Est GFR ( Amer) (> 60) Est GFR (Non-Af Amer) (> 60) BUN/Creatinine Ratio (6-26) Glucose (70-105) mg/dL Calculated Osmolality (280-300) Calcium (8.6-10.3) mg/dL Venous Ioniz Calcium 0.75 L (1.15-1.35) mmol/L Phosphorus (2.7-4.5) mg/dL Magnesium (1.6-2.6) mg/dL Albumin (3.5-5.7) g/dL TSH (0.340-5.600) mcIU/mL Free T4 (0.70-2.00) ng/dl Free T3 (2.50-3.90) pg/mL Total T3 (0.87-1.78) ng/mL PTH Intact (10.0-65.0) pg/ml - EKG Data EKG attestation: Yes I reviewed and interpreted this EKG. EKG shows normal: sinus rhythm Rate: normal Rhythm: NSR [place]/QRS: normal QTc: prolonged (514) When compared to previous EKG there are: changes noted (05/23/19 EKG for comparison) Attestation Statement - Attestation Attestation: I, Sergio Donnelly, examined this patient and my medical decision-making was reviewed with the COMPUTER SYSTEMS SECURITY ANALYST/PA/Advanced Practice Nurse/Resident Physician. I agree with the documented findings, disposition and treatment plan as described except to the extent set forth below. 28-year-old female presents emergency Department with concerns of hypocalcemia. Patient has a history of recent thyroidectomy and has had problems with hypocalcemia since that time. Patient reports symptoms of paresthesias and spasm. Positive spasm of the right face with tapping of the facial nerve. Patient denies recent fever, chills, nausea, vomiting, CP, palpitations, shortness of breath, chest pain, abdominal pain, hematochezia, melena. Patient was given calcium and emergency department. EKG showed a prolonged QTC. Repeat showed enlargement of the QTC and cardiology and hospitalist were updated regarding this change. Patient will be admitted to the hospitalist for further care and evaluation.
[2019-06-12] MEDS ORDERED: Calcium Gluconate 1gm/50mL 1 GM/50 ML BAG IVPB ONE ×5 (16:11→19:16)
[2019-06-12 16:31] LABS: Basophils # 0.1 K/mcL (0.0-0.2); Basophils % 0.9 %; Eosinophils # 0.2 K/mcL (0.0-0.6); Eosinophils % 2.9 %; Hematocrit 34.7 % (35.3-44.9); Hemoglobin 11.2 g/dL (11.5-15.4); Immature Granulocytes % 0.3 % (0-4); Lymphocytes # 2.9 K/mcL (0.6-4.6); Lymphocytes % 36.5 %; Mean Corpuscular HGB Conc 32.3 g/dL (31.6-35.5); Mean Corpuscular Volume 83.6 fL (83.0-100.0); Mean Platelet Volume 10.6 fL (9.4-12.4); Monocytes # 0.4 K/mcL (0.0-1.3); Monocytes % 4.7 %; Neutrophils # 4.3 K/mcL (1.6-8.9); Platelet Count 328 K/mcL (140-400); Red Blood Count 4.15 M/mcL (3.82-4.97); Red Cell Distribution Width 13.2 % (11.5-14.5); Segmented Neutrophils % 54.7 %; White Blood Count 7.9 K/mcL (4.3-11.1)
[2019-06-12 16:35] LABS: VBG Ionized Calcium 0.75 mmol/L (1.15-1.35)
[2019-06-12 16:53] LABS: BUN/Creatinine Ratio 13 (6-26); Blood Urea Nitrogen 10 mg/dL (6-20); Calcium 6.5 mg/dL (8.6-10.3); Carbon Dioxide 25 mEq/L (23-29); Chloride 104 mEq/L (98-107); Glucose 90 mg/dL (70-105); Magnesium 1.7 mg/dL (1.6-2.6); Osmolality,Calculated 283 (280-300); Phosphorous 5.6 mg/dL (2.7-4.5); Potassium 3.9 mEq/L (3.5-5.1); Sodium 137 mEq/L (136-145); eGFR For African Americans > 60 (> 60); eGFR For Non-African Americans > 60 (> 60)
[2019-06-12 17:07] LABS: Thyroid Stimulating Hormone 0.033 mcIU/mL (0.340-5.600)
[2019-06-12 17:10] LABS: Triiodothyronine (T3) Free 2.28 pg/mL (2.50-3.90)
[2019-06-12 17:14] LABS: Triiodothyronine (T3) Total 0.88 ng/mL (0.87-1.78)
[2019-06-12 17:18] LABS: Albumin 4.2 g/dL (3.5-5.7)
[2019-06-12] MEDS ORDERED: Naloxone 0.4 MG/ML INJ IVP PRN (17:59)
[2019-06-12] MEDS ORDERED: *HR* Promethazine 25 MG/ML VIAL IVP PRN (17:59)
--- NOTE | 2019-06-12 18:05 | Internal Med History&Physical ---
Date of Encounter: 06/12/19 Time of Encounter: 18:15 Internal Medicine - H&P: HPI Chief complaint: Abnormal labs Admitted From: Emergency Dept Plans for Post Hospital Care: Home History of present illness: Ms. Pike is a 28 year old female with a past medical history of hypothyroidism status post thyroidectomy almost 3 weeks back, presented to the hospital because of abnormal labs. Patient had thyroidectomy almost 3 weeks back. Following that, she had numbness and tingling along with the spasms of her cheeks, bryan gnosed with hypoglycemia and was given IV calcium in the hospital. She was discharged on oral calcium material has been taking. But since her discharge, she has been feeling spasm, numbness and tingling of her cheeks. She got her calcium level checked which was 6 and she was asked to come to the emergency department. In the ED, patient is clinically stable. Her calcium was 6.5, and ionized calcium was 0.75. Her QTC was prolonged. She was given 1 g of IV calcium. Following that, QTC was still prolonged. She is currently hemodynamically stable. Denies spasms now. Denies fever, chills, rigors. 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, uvula surgery, total thyroidectomy - Social History Smoking Status: Never smoker Smokeless Tobacco Status: No Alcohol use: none Drug use: none - Family History Father Family Member Ethnicity: Non- Twin of Family Member: Yes, Identical Living Status: Still Living Hx Family Cardiac Disorders: Yes (HTN, high cholesterol) Hx Family Respiratory Disorders: No Hx Family Cancer: No Hx Family GI Disorders: No Hx Family Endocrine Disorder: No Hx Family Neuromuscular Disorders: No Hx Family Neurologic Disorders: No Hx Family HEENT Disorders: No Hx Family Autoimmune Disorders: No Internal Medicine - H&P: Meds Buspirone HCl [Buspar] 7.5 mg PO BID PRN 05/20/19 [History] Levonorgestrel [Mirena] 1 each IY AD 05/20/19 [History] Calcitriol [Rocaltrol] 0.5 mcg PO BID 05/24/19 [History] Calcium Carbonate [Calcium] 1,000 mg PO QID 05/24/19 [History] Levothyroxine [Synthroid] 125 mcg PO QAM 05/24/19 [History] Magnesium Oxide [Mag-Ox] 400 mg PO BID #60 tablet 05/25/19 [Rx] Allergy/AdvReac Type Severity Reaction Status Date / Time No Known Allergies Allergy Verified 05/24/19 14:01 All Systems PM: A 10-system review of systems was performed and is negative for pertinent findings except as documented above in the HPI. Review of systems: General: Negative for fever, chills, rigors. HEENT: Negative for neck swelling, discharge from nose, discharge from ears. EYES: Negative for any discharge from the eyes. Respiratory: Negative for shortness of breath, orthopnea, exertional dyspnea. Cardiovascular: Negative for chest pain, shortness of breath, orthopnea, PND. Gastrintestical: Negative for diarrhea, constipation, blood in stools. Genitourinary: Negative for dysuria, hematuria, nocturia, increased frequency of urine. Hematological: Negative for blood loss, negative for active cancer. Neurological: Negative for headache, dizziness, blurry vision, loss os power and sensations. Endocrinology: See HPI Integumentary: Negative for rash, wounds, ulcers. Psychiatric: Negative for anxiety or depression. - Constitutional Vitals: Temp Pulse Resp BP Pulse Ox 97.9 F 74 18 135/93 100 06/12/19 15:35 06/12/19 16:52 06/12/19 15:35 06/12/19 16:52 06/12/19 16:52 Exam: General: Alert and oriented, no physical distress, able to follow commands. HEENT: No thyromegaly, no lymphadenopathy, no discharge. Spasms appreciated with touching the cheeks. Eyes: No discharge. Normal conjuctiva, no icterus Respiratory: Normal vesicular breathing, no added sounds, breathing equal in both sides. CVS: Normal heart sounds, no murmurs, regular rhthm, no edema Extremities: No peripheral edema, peripheral pulses intact. No clonus Lymph nodes: No lymphadenopathy Gastrointestinal: Soft, nontender abdomen, normal abdominal sounds. No distention noted. Genitourinary: No paravertebral tenderness. Skin: No rash, ulcers or wound. Neurological: Alert and oriented. No focal deficits. Cranial nerves II-XII intact. Internal Med - H&P Results - Labs CBC & Chem 7: 06/12/19 16:04 06/12/19 16:04 Labs: Short CBC 06/12/19 Range/Units 16:04 WBC 7.9 (4.3-11.1) K/mcL Hgb 11.2 L (11.5-15.4) g/dL Hct 34.7 L (35.3-44.9) % Plt Count 328 (140-400) K/mcL Neutrophils # 4.3 (1.6-8.9) K/mcL BMP 06/12/19 16:04 Sodium 137 Potassium 3.9 Chloride 104 Carbon Dioxide 25 BUN 10 Creatinine 0.78 Glucose 90 Calcium 6.5 L Liver Function 06/12/19 Range/Units 16:04 Albumin 4.2 (3.5-5.7) g/dL - Assessment and Plan (1) Hypocalcemia Current Visit: Yes Status: Acute Assessment and plan: Calcium of 6.5. Ionized calcium of 0.75. Has been given 1 g of IV calcium. We will give total of 3 g of IV calcium. Repeat levels tomorrow. (2) H/O thyroidectomy Current Visit: No Status: Acute Assessment and plan: TSH is still low. Continue home dose of Synthroid. Currently symptomatic. (3) Hyperthyroidism Current Visit: No Status: Acute Assessment and plan: Status post total thyroidectomy. Continue Synthroid. (4) Prolonged QT interval Current Visit: No Status: Acute Assessment and plan: QTC was found to be prolonged at the time of the admission. Was given 1 g of IV calcium gluconate. Still QTC is 517 Continue to replete calcium levels. Ordered 1 g of IV magnesium. Repeat EKG tomorrow morning after the above interventions are done. - Time Spent With Patient Total time spent is greater than 50% in coordination of care (as documented) at patient's floor/unit and/or counseling patient:
[2019-06-12] MEDS ORDERED: Calcium Gluconate 2,000 MG in 0.9 % Sodium Chloride 100 ML IVPB ONE (18:27)
[2019-06-13 06:16] LABS: Basophils # 0.1 K/mcL (0.0-0.2); Basophils % 0.7 %; Eosinophils # 0.2 K/mcL (0.0-0.6); Eosinophils % 3.1 %; Hematocrit 35.5 % (35.3-44.9); Hemoglobin 11.3 g/dL (11.5-15.4); Immature Granulocytes % 0.1 % (0-4); Lymphocytes # 3.2 K/mcL (0.6-4.6); Lymphocytes % 44.9 %; Mean Corpuscular HGB Conc 31.8 g/dL (31.6-35.5); Mean Corpuscular Hemoglobin 26.6 pg (28.0-33.3); Mean Corpuscular Volume 83.5 fL (83.0-100.0); Mean Platelet Volume 10.3 fL (9.4-12.4); Monocytes # 0.4 K/mcL (0.0-1.3); Neutrophils # 3.3 K/mcL (1.6-8.9); Platelet Count 330 K/mcL (140-400); Red Blood Count 4.25 M/mcL (3.82-4.97); Red Cell Distribution Width 13.3 % (11.5-14.5); Segmented Neutrophils % 46.2 %
[2019-06-13 06:43] LABS: BUN/Creatinine Ratio 14 (6-26); Blood Urea Nitrogen 10 mg/dL (6-20); Calcium 5.9 mg/dL (8.6-10.3); Carbon Dioxide 25 mEq/L (23-29); Chloride 104 mEq/L (98-107); Glucose 93 mg/dL (70-105); Osmolality,Calculated 289 (280-300); Potassium 3.7 mEq/L (3.5-5.1); Sodium 140 mEq/L (136-145); eGFR For African Americans > 60 (> 60); eGFR For Non-African Americans > 60 (> 60)
[2019-06-13] MEDS ORDERED: Calcium Gluconate 1gm/50mL 1 GM/50 ML BAG IVPB ONE (07:39)
[2019-06-13] MEDS: Calcium Gluconate 1gm/50mL 1 GM/50 ML BAG IVPB SCH ×2 (07:59→09:02)
[2019-06-13 11:14] LABS: VBG Ionized Calcium 0.83 mmol/L (1.15-1.35)
--- NOTE | 2019-06-13 14:56 | Internal Med Progress Note ---
Hospitalist Progress Note - Encounter Date of Encounter: 06/13/19 Time of Encounter: 09:55 - Subjective Interval History: Patient seen at the bedside. Currently denies any complaints. Denies facial spasm, tetany, numbness or tingling sensations. In the morning, repeated calcium levels were again low, she was given 2 g calcium again with improvement of calcium to 6.5 and ionized calcium to 0.83. EKG in the morning showed a QTC of 507. - Exam Vitals: Temp Pulse Resp BP Pulse Ox 98.4 F 71 16 126/86 98 06/13/19 11:54 06/13/19 11:54 06/13/19 11:54 06/13/19 11:54 06/13/19 07:08 Exam: General: Alert and oriented, no physical distress, able to follow commands. HEENT: Scar for the prevosu thyroidectomy Eyes: No discharge. Normal conjuctiva, no icterus Respiratory: Normal vesicular breathing, no added sounds, breathing equal in both sides. CVS: Normal heart sounds, no murmurs, regular rhthm, no edema Extremities: No peripheral edema, peripheral pulses intact. No clonus Gastrointestinal: Soft, nontender abdomen, normal abdominal sounds. No disten tion noted. Genitourinary: No paravertebral tenderness. Skin: No rash, ulcers or wound. Neurological: Alert and oriented. No focal deficits. Cranial nerves II-XII intact. - Assessment and Plan (1) Hypocalcemia Current Visit: Yes Status: Acute Assessment and Plan: Calcium of 6.5., Ionized calcium of 0.83 Has been given total of 6 g of IV calcium. We started the patient back on the oral calcium, increase the dose to 1500 mg of calcium carbonate 4 times a day. Increase the dose of Rocaltrol to 1mcg BID Repeat levels tomorrow. (2) H/O thyroidectomy Current Visit: No Status: Acute Assessment and Plan: TSH is still low. Continue home dose of Synthroid. Currently symptomatic. (3) Hyperthyroidism Current Visit: No Status: Acute Assessment and Plan: Status post total thyroidectomy. Continue Synthroid. (4) Prolonged QT interval Current Visit: No Status: Acute Assessment and Plan: QTC was found to be prolonged at the time of the admission. It is in the morning improved to 507. After further calcium and magnesium in the morning, patient QTC improved to 480 now. Order one more dose of IV magnesium to keep the magnesium level is above 2. Continue to replete calcium levels. Ordered 1 g of IV magnesium. Repeat EKG tomorrow morning. - Time Spent with Patient Total time spent is greater than 50% in coordination of care (as documented) at patient's floor/unit and/or counseling patient: Internal Medicine: Result - Labs CBC & Chem 7: 06/13/19 05:58 06/13/19 05:58 Labs: Short CBC 06/12/19 06/13/19 Range/Units 16:04 05:58 WBC 7.9 7.0 (4.3-11.1) K/mcL Hgb 11.2 L 11.3 L (11.5-15.4) g/dL Hct 34.7 L 35.5 (35.3-44.9) % Plt Count 328 330 (140-400) K/mcL Neutrophils # 4.3 3.3 (1.6-8.9) K/mcL BMP 06/12/19 06/13/19 06/13/19 16:04 05:58 10:52 Sodium 137 140 Potassium 3.9 3.7 Chloride 104 104 Carbon Dioxide 25 25 BUN 10 10 Creatinine 0.78 0.69 Glucose 90 93 Calcium 6.5 L 5.9 L* 6.5 L 06/13/19 12:02 Sodium Potassium Chloride Carbon Dioxide BUN Creatinine Glucose Calcium 6.9 L Liver Function 06/12/19 Range/Units 16:04 Albumin 4.2 (3.5-5.7) g/dL Consult Discharge Plan - Plan Referrals: Lakshmi Merlos, GRAYSON [Primary Care Provider] -
[2019-06-13 16:01] LABS: VBG Ionized Calcium 0.86 mmol/L (1.15-1.35)
--- NOTE | 2019-06-13 21:02 | Electrocardiograph Report ---
[place] [id number] Test Date: 2019-06-13 Pat Name: Arianne Pike Department: 111 Room: 2NE22 Gender: F Import/Export Analyst: : 1990 Requested By: Jose Walter Order Number: [id number] Reading MD: Gabe Melendez Measurements Intervals [place] Rate: 67 P: 57 CT: 161 QRS: 37 QRSD: 105 T: 0 QT: 489 QTc: 505 Interpretive Statements SINUS RHYTHM RSR IN V1/V2, PROBABLY NORMAL VARIANT PROLONGED QT INTERVAL Electronically Signed On 06-13-2019 21:00:19 EDT by Gabe Melendez
[2019-06-14 05:00] LABS: BUN/Creatinine Ratio 16 (6-26); Blood Urea Nitrogen 10 mg/dL (6-20); Calcium 6.6 mg/dL (8.6-10.3); Carbon Dioxide 22 mEq/L (23-29); Chloride 102 mEq/L (98-107); Glucose 96 mg/dL (70-105); Magnesium 1.6 mg/dL (1.6-2.6); Osmolality,Calculated 285 (280-300); Sodium 138 mEq/L (136-145); eGFR For African Americans > 60 (> 60); eGFR For Non-African Americans > 60 (> 60)
[2019-06-14 07:11] VITALS: BP 114/67
[2019-06-14 07:45] LABS: VBG Ionized Calcium 0.75 mmol/L (1.15-1.35)
[2019-06-14 13:26] LABS: VBG Ionized Calcium 0.87 mmol/L (1.15-1.35)
[2019-06-14 13:43] LABS: Calcium 7.3 mg/dL (8.6-10.3); Magnesium 1.8 mg/dL (1.6-2.6)
--- NOTE | 2019-06-14 14:58 | Discharge Summary ---
- NOTES TO OUTPATIENT PROVIDER Notes to Outpatient Provider: Presented with facial spasm, tetany, found to be severely hypoglycemic, prolonged QTC. Was given IV calcium and magnesium. QTC shortened. Most recent one is 463. Increase the dose of calcium carbonate to 1.5 gram 4 times a day and calcitriol to 1mcg BID. Ordered repeat BMP, ionized calcium and magnesium for Sunday. Date of Encounter: 06/14/19 Time of Encounter: 10:00 - Discharge Diagnosis (1) Hypocalcemia Priority: Primary Status: Acute (2) H/O thyroidectomy Priority: Secondary Status: Acute (3) Hyperthyroidism Priority: Secondary Status: Acute (4) Prolonged QT interval Priority: Secondary Status: Acute Hospital course: Ms. Pike is a 28 year old female with a past medical history significant for hypothyroidism status post Thyroidectomy, previous admission because of severe hypoglycemia, presented to the hospital because of the tetany, facial numbness and tingling, facial spasms. At the time of the presentation, patient calcium was 6.5 and ionized calcium of 0.75. EKG showed prolonged QTC of 517. Patient was given calcium gluconate, 4 g on day 1, 3 on Sunday 2. She was started on calcium carbonate medication. Increase the dose to 1500 mg 4 times a day. Her calcitriol dose was also increased to 1 mcg BID. Calcium levels in the morning was 6.6 which improved to 7.3. Ionized calcium is 0.87 today. Patient wants to go home. EKG was obtained today which showed a QTC of 463. Discussed with the patient to continue 1500 mg of patient carbonate 4 times a day. Continue magnesium oxide at the current dose. Increase the dose of calcitriol to 1 mcg BID. Also provided the patient with a prescription to obtain BMP, ionized calcium and magnesium on Sunday. Discussed with the patient to come back to the hospital in case of relapse of symptoms, palpitations or if she is not feeling well. Of note, patient is currently asymptomatic. She feels fine. She has been discharged in stable condition. - Time Spent with Patient Total time spent providing and/or coordinating discharge services: 45 minutes - Discharge Medications Prescriptions: New Calcitriol [Rocaltrol] 1 mcg PO BID #120 capsule Calcium Carbonate [Tums] 1,500 mg PO QID tab.chew Continued Levonorgestrel [Mirena] 1 each IY AD Buspirone HCl [Buspar] 7.5 mg PO BID PRN PRN Reason: Anxiety Levothyroxine [Synthroid] 125 mcg PO QAM Magnesium Oxide [Mag-Ox] 400 mg PO BID #60 tablet Discontinued Calcitriol [Rocaltrol] 0.5 mcg PO BID Calcium Carbonate [Calcium] 1,000 mg PO QID Home Medications: Buspirone HCl [Buspar] 7.5 mg PO BID PRN 05/20/19 [History] Levonorgestrel [Mirena] 1 each IY AD 05/20/19 [History] Levothyroxine [Synthroid] 125 mcg PO QAM 05/24/19 [History] Magnesium Oxide [Mag-Ox] 400 mg PO BID #60 tablet 05/25/19 [Rx] Calcitriol [Rocaltrol] 1 mcg PO BID #120 capsule 06/14/19 [Rx] Calcium Carbonate [Tums] 1,500 mg PO QID tab.chew 06/14/19 [Rx] Allergies/Adverse Reactions: Allergy/AdvReac Type Severity Reaction Status Date / Time No Known Allergies Allergy Verified 05/24/19 14:01 Date of admission: 06/12/19 18:04 Primary care physician: Lakshmi Merlos - Constitutional Vitals: Temp Pulse Resp BP Pulse Ox 97.9 F 94 14 114/67 98 06/14/19 07:09 06/14/19 07:09 06/14/19 07:09 06/14/19 07:09 06/14/19 04:14 Exam: General: Alert and oriented, no physical distress, able to follow commands. HEENT: Scar for the prevosu thyroidectomy Eyes: No discharge. Normal conjuctiva, no icterus Respiratory: Normal vesicular breathing, no added sounds, breathing equal in both sides. CVS: Normal heart sounds, no murmurs, regular rhthm, no edema Extremities: No peripheral edema, peripheral pulses intact. No clonus Gastrointestinal: Soft, nontender abdomen, normal abdominal sounds. No distention noted. Genitourinary: No paravertebral tenderness. Skin: No rash, ulcers or wound. Neurological: Alert and oriented. No focal deficits. Cranial nerves II-XII intact. - Patient Status Disposition: Home, Self-Care Condition: Good Functional capacity at discharge: independent ambulation Overall status at discharge: patient is back to baseline - Discharge Instructions Follow Up With: Lakshmi Merlos CNP [Primary Care Provider] - (patient will need to call the office of Lakshmi Merlos to schedule a hospital follow up . The follow up should be done withing 5-7 days of being discharged) - Diet and Activity Activity: increase activity as tolerated Diet: advance to your usual diet
[2019-06-14] MEDS ORDERED: Magnesium Oxide 400 MG TABLET PO SCH (21:00)
--- NOTE | 2019-06-15 00:18 | Electrocardiograph Report ---
[employer] [employer] Test Date: 2019-06-12 Pat Name: Arianne Pike Department: [id number] Room: 2NE22 Gender: F Head Of Measurement & Insights: : 1990 Requested By: [id number] Order Number: [id number] Reading MD: Dom Sarkar Measurements Intervals [place] Rate: 73 P: 48 [place]: 160 QRS: 22 QRSD: 111 T: 27 QT: 466 QTc: 514 Interpretive Statements Sinus rhythm RSR' in V1 or V2, right VCD or RVH Prolonged QT interval Electronically Signed On 06-15-2019 0:16:45 EDT by Dom Sarkar
--- NOTE | 2019-06-15 00:18 | Electrocardiograph Report ---
[facility] Test Date: 2019-06-12 Pat Name: Arianne Pike Department: [id number] Room: 2NE22 Gender: F Insurance Agents Supervisor: : 1990 Requested By: [id number] Order Number: [id number] Reading MD: Dom Sarkar Measurements Intervals [place] Rate: 74 P: 48 IN: 161 QRS: 25 QRSD: 110 T: 36 QT: 469 QTc: 521 Interpretive Statements Sinus rhythm RSR' in V1 or V2, probably normal variant Prolonged QT interval Electronically Signed On 06-15-2019 0:17:12 EDT by Dom Sarkar
--- NOTE | 2019-06-16 22:21 | Electrocardiograph Report ---
[place] [address] Test Date: 2019-06-13 Pat Name: Arianne Pike Department: 111 Room: 2NE22 Gender: F Gastroenterology Technician: : 1990 Requested By: Jose Walter Order Number: [id number] Reading MD: Gabe Melendez Measurements Intervals [place] Rate: 75 P: 47 ND: 154 QRS: 40 QRSD: 106 T: 3 QT: 451 QTc: 480 Interpretive Statements SINUS RHYTHM RSR IN V1/V2, PROBABLY NORMAL VARIANT PROLONGED QT INTERVAL Electronically Signed On 06-16-2019 22:19:40 EDT by Gabe Melendez
--- NOTE | 2019-06-16 22:37 | Electrocardiograph Report ---
[place] [address] Test Date: 2019-06-14 Pat Name: Arianne Pike Department: 111 Room: 2NE22 Gender: F Insert Molding Operator: Toya : 1990 Requested By: Jose Walter Order Number: [id number] Reading MD: Gabe Melendez Measurements Intervals [place] Rate: 76 P: 36 DC: 162 QRS: 33 QRSD: 104 T: 5 QT: 433 QTc: 463 Interpretive Statements SINUS RHYTHM RSR IN V1/V2, NORMAL VARIANT OR RIGHT VENTRICULAR CONDUCTION DELAY Electronically Signed On 06-16-2019 22:36:07 EDT by Gabe Melendez
== END 2019-06-14 15:34 | disposition home or self-care (01) ==
LOC: 2NENU 15:29 → EMEROOARM 15:29 → SUATTDRO 18:04 → 2NENU 19:30
PROVIDERS: ADMIT Internal Medicine; ATTEND Internal Medicine